=== PATIENT | female | born 1985 | race American Indian/Alaskan Native ===

== ENCOUNTER 2016-11-01 12:38 | Emergency (ER) | payer SELFPAY ==
[2016-11-01 13:26] VITALS: BP 99/57
--- NOTE | 2016-11-01 14:33 | Emergency Department Report ---
- General Chief Complaint: Upper Respiratory Infection Stated Complaint: PAIN IN EAR/NECK/CHEST Time Seen by Provider: 11/01/16 14:28 Source: patient Mode of arrival: Ambulatory Limitations: No Limitations - History of Present Illness MD Complaint: other (recent sinus infection but put on flonase only. ) -: Gradual Severity: mild Consistency: intermittent Improves With: nothing Worsens With: nothing Context: sick contacts (works in daycare) Associated Symptoms: headache, nasal congestion, other (nothing going around the school). denies: denies other symptoms, fever, chills, myalgias, diaphoresis, rhinorrhea, stiff neck, cough, chest pain, shortness of breath, abdominal pain, nausea, vomiting, diarrhea, rash, confusion, right sweats, weight loss, epistaxis, hoarseness, ear pain Treatments Prior to Arrival: none - Related Data Previous Rx's Medication Instructions Recorded Last Taken Type Azithromycin [Zithromax TAB] 250 mg PO QDAY #6 tablet 11/01/16 Unknown Rx methylPREDNISolone [Medrol] 4 mg PO DAILY #1 tab.ds.pk 11/01/16 Unknown Rx Allergies Allergy/AdvReac Type Severity Reaction Status Date / Time Penicillins Allergy Unknown Verified 11/01/16 13:27 ED Review of Systems ROS: Stated complaint: PAIN IN EAR/NECK/CHEST Other details as noted in HPI Comment: All other systems reviewed and negative Constitutional: no symptoms reported Eyes: as per HPI ENT: ear pain (l), congestion (sinys). denies: dental pain, hearing loss, epistaxis Respiratory: no symptoms reported Cardiovascular: as per HPI Endocrine: no symptoms reported Gastrointestinal: as per HPI Genitourinary: as per HPI Musculoskeletal: as per HPI Skin: as per HPI Neurological: as per HPI Psychiatric: as per HPI Hematological/Lymphatic: as per HPI ED Past Medical Hx - Past Medical History Additional medical history: PCOS - Surgical History Hx Breast Surgery: Yes (LEFT BREAST -CYST REMOVED) - Social History Smoking Status: Never Smoker Substance Use Type: Alcohol - Medications Home Medications: Home Medications Medication Instructions Recorded Confirmed Last Taken Type Azithromycin [Zithromax TAB] 250 mg PO QDAY #6 tablet 11/01/16 Unknown Rx methylPREDNISolone [Medrol] 4 mg PO DAILY #1 tab.ds.pk 11/01/16 Unknown Rx ED Physical Exam - General Limitations: No Limitations General appearance: alert, in no apparent distress - Head Head exam: Present: atraumatic - Eye Eye exam: Present: normal appearance, PERRL, EOMI. Absent: scleral icterus, conjunctival injection, nystagmus, periorbital swelling, periorbital tenderness - ENT ENT exam: Present: normal orophraynx (red w post nasal gtt), mucous membranes moist, TM's normal bilaterally (l red; r dark w previous rupture) - Neck Neck exam: Present: full ROM, lymphadenopathy (ant l cervical chain enlarged) - Respiratory Respiratory exam: Present: normal lung sounds bilaterally. Absent: respiratory distress, wheezes, rales, rhonchi, stridor - Cardiovascular Cardiovascular Exam: Present: regular rate, normal rhythm - GI/Abdominal GI/Abdominal exam: Present: soft. Absent: distended - Rectal Rectal exam: Present: deferred - Extremities Exam Extremities exam: Present: normal inspection - Back Exam Back exam: Present: normal inspection - Neurological Exam Neurological exam: Present: alert, altered, oriented X3 - Psychiatric Psychiatric exam: Present: normal affect, normal mood - Skin Skin exam: Present: warm, dry, intact ED Course Vital Signs 11/01/16 13:19 Temperature 98.3 F Pulse Rate 76 Respiratory 18 Rate Blood Pressure 99/57 O2 Sat by Pulse 100 Oximetry ED Medical Decision Making - Medical Decision Making non ill appearing no fever works at day care Critical care attestation.: If time is entered above; I have spent that time in minutes in the direct care of this critically ill patient, excluding procedure time. ED Disposition Clinical Impression: Sinusitis Disposition: DISCHARGED TO HOME OR SELFCARE Is pt being admited?: No Does the pt Need Aspirin: No Condition: Good Instructions: Sinusitis (ED) Additional Instructions: rest fluids CONTINUE HOME FLONASE Meds as ordered here today Prescriptions: Azithromycin [Zithromax TAB] 250 mg PO QDAY #6 tablet methylPREDNISolone [Medrol] 4 mg PO DAILY #1 tab.pk Referrals: PRIMARY CARE, [Primary Care Provider] - 3-5 Days Time of Disposition: 14:31
== END 2016-11-01 14:46 | disposition home or self-care (01) ==
LOC: ED 12:38
DX: J32.9 Chronic sinusitis, unspecified (principal); Z88.0 Allergy status to penicillin
CPT/HCPCS: 99282